=== PATIENT | female | born 1990 | race Caucasian/White ===

== ENCOUNTER 2020-05-23 20:11 | Emergency (ER) | payer OTHER ==
[~2020-05-23] VITALS: Ht 160 cm; Wt 58.0 kg
[2020-05-23] MEDS ORDERED: MORPHINE SULFATE 4 MG/ML CPJ (NOT FOR IM USE) IV STA (20:43)
[2020-05-23] MEDS ORDERED: ACETAMINOPHEN 325MG TABLET PO STA (20:43)
[2020-05-23] MEDS ORDERED: ONDANSETRON HCL 4MG/2ML INJ IV STA (20:43)
[2020-05-23] MEDS ORDERED: SODIUM CHLORIDE 0.9% 1000ML BAG (SEPSIS BOLUS) IV ONE (20:45)
[2020-05-23] MEDS ORDERED: PIPERACILLIN/TAZ 3.375G PREMIX 50 ML IV ONE (20:45)
[2020-05-23] MEDS ORDERED: VANCOMYCIN 1 G PREMIX 200 ML IV ONE (20:45)
[2020-05-23 22:00] LABS: BASOPHILS % 0.5 % (0.0-2.0); EOSINOPHILS % 0.3 % (0.0-5.0); HEMOGLOBIN. 14.3 g/dL (12.0-16.0); LYMPHOCYTES % 18.2 % (20.0-50.0); MEAN CORPUSCULAR HEMOGLOBIN 29.3 pg (28.0-32.0); MEAN CORPUSCULAR VOLUME 86.1 fL (81.0-99.0); MEAN PLATELET VOLUME 9.4 fl (7.4-10.4); MONOCYTES % 6.4 % (2.0-8.0); NEUTROPHILS % 74.6 % (40.0-76.0); PLATELET 338 x1000/uL (130-400); RED BLOOD CELL COUNT 4.87 mill/uL (4.2-5.4)
[2020-05-23 22:06] LABS: CHLORIDE 97 mEq/L (98-107)
[2020-05-23 22:33] LABS: CLARITY URINE CLEAR (CLEAR); COLOR URINE ORANGE (YELLOW); KETONES URINE NEGATIVE (NEGATIVE); LEUKOCYTE ESTERASE URINE 1+ (NEGATIVE); NITRITE URINE POSITIVE (NEGATIVE); OCCULT BLOOD URINE 2+ (NEGATIVE); PROTEIN URINE 2+ (NEGATIVE); SPECIFIC GRAVITY URINE 1.006 (1.005-1.030)
[2020-05-24 00:49] VITALS: BP 120/80
== END 2020-05-24 00:49 | disposition home or self-care (01) ==
LOC: ER 20:11
DX: N12 Tubulo-interstitial nephritis, not specified as acute or chronic (principal); Z87.440 Personal history of urinary (tract) infections
CPT/HCPCS: 36415; 80053; 81003; 83605; 84145; 85025; 85610; 87040; 93005; 96365; 96375; 99284; J2270; J2405; J2543; J7030